=== PATIENT | female | born 1990 | race Hispanic/Latino ===

== ENCOUNTER 2023-05-03 14:06 | Outpatient (CLI) | payer OTHER | END 2023-05-03 14:07 | disposition home or self-care (01) | LOC: ULT 14:06 | PROVIDERS: ATTEND Family Medicine | DX: T83.32XA Displacement of intrauterine contraceptive device, initial encounter (principal); N88.8 Other specified noninflammatory disorders of cervix uteri | CPT/HCPCS: 76856 ==